=== PATIENT | male | born 1980 | race African-American/Black ===

== ENCOUNTER 2018-09-07 21:36 | Observation (INO) ==
[2018-09-07] MEDS ORDERED: ATIVAN IM ONE (22:51)
[2018-09-07 23:20] LABS: BASO# 0.02 X1000 (0.0-0.2); BASO% 0.2 % (0.0-0.8); EOS# 0.01 X1000 (0.0-0.7); EOS% 0.1 % (0.0-10.0); HEMATOCRIT 48.5 % (42.0-52.0); HEMOGLOBIN 16.2 g/dL (14.0-18.0); IMM GRAN# 0.02 X1000 (0.0-0.04); IMM GRAN% 0.2 % (0.0-0.5); LYMPH# 1.28 X1000 (1.2-3.4); LYMPH% 14.6 % (20.5-51.1); MCH 31.2 PG (27-31); MCHC 33.4 g/dL (33-37); MCV 93.3 FL (81-99); MONO# 0.65 X1000 (0.11-0.59); MONO% 7.4 % (1.7-9.3); MPV 11.2 FL (7.4-10.4); NEUT% 77.5 % (42.2-75.2); PLT 297 X1000 (130-400); RDW 13.6 % (11.5-14.5); WBC 8.78 X1000 (4.8-10.8)
[2018-09-07 23:40] LABS: AGAP 18; ALB/GLOB RATIO 1.4; ALBUMIN 5.4 g/dL (3.5-5.0); ALKALINE PHOSPHATASE 64 U/L (32-122); BUN 15 mg/dL (8-22); CALCIUM 9.3 mg/dL (8.8-10.2); CHLORIDE 95 mmol/L (98-107); CK TOTAL 1102 U/L (24-204); COSMO 278; CREATININE 1.2 mg/dL (0.7-1.2); ESTIMATED GFR > 60; GLUCOSE 151 mg/dL (70-104); GOT 46 U/L (10-34); GPT 32 U/L (10-44); POTASSIUM 3.8 mmol/L (3.5-5.1); SODIUM 137 mmol/L (136-145); TCO2 24 mmol/L (25-35); TOTAL BILIRUBIN 0.78 mg/dL (0.20-1.00); TOTAL PROTEIN 9.3 g/dL (6.3-8.3)
[2018-09-08] MEDS ORDERED: NS 1,000 ML IV ONE (00:05)
[2018-09-08] MEDS ORDERED: ATIVAN IM ONE ×2 (00:16→01:31)
--- NOTE | 2018-09-08 01:59 | PROVIDER DOCUMENTATION ---
This chart was entered by Juju Cornelius Scribe, acting as scribe for Walter Marlow MD. [id number] Abuse/Overdose - General Chief Complaint: Intoxicated Stated Complaint: psych Time Seen by Provider: 09/07/18 22:18 Source: EMS Allergies/Adverse Reactions: Allergies Allergy/AdvReac Type Severity Reaction Status Date / Time No Known Allergies Allergy Verified 07/14/18 19:59 Home Medications: Home Medication List Medication Instructions Recorded Confirmed Last Taken Type No Home Medications 01/23/15 07/14/18 Unknown History - History of Present Illness-Drug/Alcohol Nature of Presenting Problem: Pt is 37/M presenting to ED via EMS after "eating a gram of ICE" at home. Sts that it was the first time that he ever used it and that it made him hallucinate and scared him. His brother called EMS. Reports some N/V Review of Systems - Adult - REVIEW OF SYSTEMS - ADULT Constitutional: reports: no symptoms reported Eyes: reports: no symptoms reported Ears, Nose, Mouth & Throat: reports: no symptoms reported Cardiovascular: reports: no symptoms reported Respiratory: reports: no symptoms reported Gastrointestinal: reports: no symptoms reported Genitourinary: reports: no symptoms reported Musculoskeletal: reports: no symptoms reported Integumentary: reports: no symptoms reported Neurological: reports: no symptoms reported Psychiatric: reports: no symptoms reported Endocrine: reports: no symptoms reported Hematologic/Lymphatic: reports: no symptoms reported Allergic/Immunologic: reports: no symptoms reported All Other Systems: Reviewed and Negative Past History - Adult - PAST MEDICAL HISTORY-ADULT Review of Records: reports: Nursing Assessment Review, Medications Reviewed, Social history reviewed & non-contributory. Major Childhood Illnesses: reports: denies history Cardiovascular: reports: denies history Respiratory: reports: denies history Gastrointestinal: reports: denies history Obstetrical/Gynecological: reports: denies history Genitourinary: reports: denies history Musculoskeletal: reports: denies history Neurological: reports: denies history Endocrine/Immune: reports: denies history Other Conditions: reports: denies history - IMMUNIZATION STATUS Childhood Immunizations: See Nurse Assessment Flu Vaccine: See Nurse Assessment - FAMILY HISTORY Family History: reviewed, not pertinent Physical Exam-General - CONSTITUTIONAL General Appearance: moderate distress - EYES Eyes: pink conjunctivae - HEAD, EARS, NOSE, MOUTH & THROAT HENMT: moist mucous membranes - NECK Neck: full range of motion - RESPIRATORY Respiratory: chest non-tender, lungs clear, normal breath sounds. negative: crackles, rales, rhonchi - CARDIOVASCULAR Cardiovascular: normal peripheral pulses, regular rate, rhythm, no edema - GASTROINTESTINAL (ABDOMEN) Abdominal Exam: normal bowel sounds, non tender, soft. negative: distended, guarding, rigid, rebound, tenderness - MUSCULOSKELETAL Extremity: non-tender, normal gait - SKIN Integumentary: normal color, normal turgor - PSYCHIATRIC Psych/Mental Status: paranoid. negative: normal mood/affect, normal thought content, normal thought process Progress - PLAN OF CARE/RESULTS Progress/Plan/Lab Results: Vital Signs - 8 hr 09/07/18 22:18 09/08/18 00:06 09/08/18 01:45 Temperature 97.9 F 97.9 F Pulse Rate 162 H 136 H 121 H Respiratory Rate 18 20 20 Blood Pressure 160/113 143/113 130/99 O2 Sat by Pulse Oximetry 98 97 98 Laboratory Results - last 24 hr 09/07/18 09/07/18 09/07/18 22:45 22:45 22:45 WBC 8.78 RBC 5.20 Hgb 16.2 Hct 48.5 MCV 93.3 MCH 31.2 H MCHC 33.4 RDW Std Deviation 13.6 Plt Count 297 MPV 11.2 H Immature Gran % (Auto) 0.2 Neut % (Auto) 77.5 H Lymph % (Auto) 14.6 L [place] % (Auto) 7.4 Eos % (Auto) 0.1 Baso % (Auto) 0.2 Immature Gran # (Auto) 0.02 Neut # (Auto) 6.80 H Lymph # (Auto) 1.28 [place] # (Auto) 0.65 H Eos # (Auto) 0.01 Baso # (Auto) 0.02 Sodium 137 Potassium 3.8 Chloride 95 L Carbon Dioxide 24 L Anion Gap 18 BUN 15 Creatinine 1.2 Estimated GFR/1.73 m2 > 60 BUN/Creatinine Ratio 13 Glucose 151 H Calculated Osmolality 278 Calcium 9.3 Total Bilirubin 0.78 AST 46 H ALT 32 Alkaline Phosphatase 64 Creatine Kinase 1102 H Total Protein 9.3 H Albumin 5.4 H Globulin 3.9 Albumin/Globulin Ratio 1.4 Plasma/Serum Ethyl Alc Orders Category Date Time Status Saline Loc NOW Care 09/08/18 00:05 Active ALCOHOL BLOOD Stat Lab 09/07/18 22:45 Completed CBC WITH ELECTRONIC DIFF [HEME] Stat Lab 09/07/18 22:45 Completed CK TOTAL [CHEM] Stat Lab 09/07/18 22:45 Completed COMPREHENSIVE METABOLIC PANEL [CHEM] Stat Lab 09/07/18 22:45 Completed URINE DRUG SCREEN Stat Lab 09/08/18 00:34 Received 0.9% Sodium Chloride Inj [Ns] 1,000 ml Med 09/08/18 00:05 Discontinued IV 999 mls/hr Lorazepam [Ativan] Med 09/07/18 22:51 Discontinued 1 mg IM NOW ONE Lorazepam [Ativan] Med 09/08/18 00:16 Discontinued 2 mg IM NOW ONE Lorazepam [Ativan] Med 09/08/18 01:31 Discontinued 2 mg IM NOW ONE EKG [EKG] Stat Ther 09/07/18 22:52 Ordered A/P: Acute methamphetimine intoxication. Vitals show elevated BP and tacjycardia , pt active hallucinations and dleusions paranoid. will admit to ICU. Result Diagrams: 09/07/18 22:45 09/07/18 22:45 Departure - Departure Date of Disposition Decision: 09/08/18 Time of Disposition Decision: 01:56 DIAGNOSIS: Drug intoxication Disposition: ADMITTED INPATIENT 09 Certified Medical Emergency: Emergent Condition: Stable Additional Freetext Instructions: We have examined and treated you today on an emergency basis only. This was not a substitute for, or an effort to provide, complete medical care. In most cases, you must let your doctor check you again. Tell your doctor about any new or lasting problems. We cannot recognize and treat all injuries or illnesses in one Emergency Department visit. If you had special tests, such as X-rays or CT scans, will be reviewed by radiologist and will call you if there are any new suggestions Follow up with primary care provider in 1 to 2 days if no improvement. If you do not have a primary care provider, you need to choose one as soon as possible. Take medicines as prescribed. Monitor for any side effects or adverse events from medications. If any side effect, adverse event or rash develops, or if you suspect any other adverse reaction to the medication, then discontinue the medication immediately and contact clinic /PCP or go to the nearest ER. Narcotic meds / sedative meds instruction - patent advised not to drive, operate any machinery or go into water after taking meds as it may impair mental ability to react to the situation in an appropriate manner. Continue other current medicines. Follow up with PCP within 24-48 hours, or sooner if symptoms worsen or fail to improve. Patient / guardian verbalizes understanding of treatment plan, medication, and side effects and agrees with treatment plan. Patient leaves ER in stable condition and ambulatory state. Return to ER as needed. Discharge instructions reviewed verbally and given to patient in written form. Follow up with primary care provider. Referrals and Follow-Ups: None,PCP [Primary Care Provider] - - Critical Care Note This patient required my direct & personal management of CC.: No Attestation - Physician/ ADONIS Attestation Patient care was provided by Advanced Practice Provider:: No The physician spent face to face time with patient:: Yes Advanced Practice Provider documentation review:: Supervising physician onsite and consulted in the evaluation and care of this patient. The physician did have a face to face encounter with the patient. This chart was documented by the indicated scribe, (Juju Cornelius, Hali) and accurately reflects the services I performed and decisions made by me, Walter Marlow MD, as attested by the provider's signature.
[2018-09-08] MEDS ORDERED: ATIVAN IV ONE (02:38)
[2018-09-08 03:16] LABS: UR AMPHETAMINES QUAL PRESUMPTIVE POSITIVE (NONE DETECT); UR BARBITUATES QUAL NONE DETECTED (NONE DETECT); UR BENZODIAZEPIN QUAL NONE DETECTED (NONE DETECT); UR CANNABINOIDS QUAL NONE DETECTED (NONE DETECT); UR COCAINE QUAL PRESUMPTIVE POSITIVE (NONE DETECT); UR METHADONE QUAL NONE DETECTED (NONE DETECT); UR OPIATES QUAL NONE DETECTED (NONE DETECT); UR OXYCODONE QUAL NONE DETECTED (NONE DETECT); UR PCP QUAL NONE DETECTED (NONE DETECT)
--- NOTE | 2018-09-08 03:21 | HISTORY AND PHYSICAL ---
CHIEF COMPLAINT: Intoxication. HISTORY OF PRESENT ILLNESS: This is a 37-year-old, black male who was brought to the emergency room by family members. At some time during the previous evening, he had consumed some alcohol and some other drugs, namely methamphetamine. He began hallucinating, and having psychotic and paranoid features. Family members sent him to the ER. There, he was found to be highly agitated and confused. He was admitted, most likely for observation. This admission mirrors almost exactly an admission from last month in which he was intoxicated on methamphetamine. PAST MEDICAL HISTORY: None. PAST SURGICAL HISTORY: None. FAMILY HISTORY: None. SOCIAL HISTORY: None. There was no medical history, surgical history, family history, or social history that could be obtained from this man due to his intoxication. Any other historical elements were taken from previous records. ALLERGIES: No known drug allergies. REVIEW OF SYSTEMS: Unable to obtain. PHYSICAL EXAMINATION: GENERAL: He is a well-developed, black male who is in no acute distress. He is standing at the bedside, trying to pull off leads and remove his clothing. He is agitated and confused but not combative at the time of my examination. LUNGS: Clear. CARDIOVASCULAR: Regular, bordering on tachycardia. EXTREMITIES: Show no edema. He has no musculoskeletal deformities. PSYCHIATRIC: From a psychiatric standpoint, he is alert but he is not oriented. His speech is fluent but nonsensical and, to a certain degree, slurred. He does not appear to have any trauma about his head. LABORATORY DATA: White cells 8.7, hematocrit 48.5. BUN 15, creatinine 1.2, blood sugar 151. CK is 12 1102. Plasma alcohol was 0. Urine drug screen is still pending. ASSESSMENT AND PLAN: The patient will be admitted to the intensive care unit. I do not think, in his present condition, what he is able to be handled at the high patient to nurse ratio on the floor. There are no [facility] beds available so intensive care unit is really our only choice. He will be given intravenous fluids to try and flush out some of the CK and to keep his kidneys intact. We will be giving as needed Ativan and phenobarbital. If this goes like his previous examination, he will request discharge tomorrow when he comes to his senses. We will continue to observe and monitor his psychiatric status, and make adjustments in medications as necessary. cc: Mathew Vera MD
[2018-09-08] MEDS ORDERED: PHENOBARBITAL IV PRN (04:59)
[2018-09-08] MEDS ORDERED: ATIVAN IV PRN (04:59)
--- NOTE | 2018-09-08 09:09 | PROGRESS NOTE ---
DATE: 09/08/2018 SUBJECTIVE: The patient was admitted this morning. A 37-year-old brought into the emergency room by family members. He consumed some alcohol and some other drugs, namely methamphetamine. He was hallucinating and having psychotic and paranoid features. He has no other significant past medical history. Admitted and put in the unit. OBJECTIVE: General: This morning, he is awake, alert, and oriented. His words is that he will not be taking that any more. He is eating breakfast. Vital Signs: Temp 97.9 degrees, pulse 88, respirations 16, blood pressure 135/100. HEENT: Pupils are equal. Neck: No distended neck veins. Lungs: Clear in all lung yu anterior and posterior. Cardiovascular: Regular rhythm and rate without murmur or S3. Abdomen: Soft. Skin: Warm and dry. Extremities: No pedal edema. LABORATORY DATA: White count 8780, hematocrit 48, platelet count 297,000. Sodium 137, potassium 3.8, chloride 95, BUN 15, creatinine 1.2. Urine positive for amphetamines and positive for cocaine. His alcohol level was 0. ASSESSMENT AND PLAN: Cocaine and amphetamine metabolic encephalopathy. Looks better. Hopefully, he can go home later today. cc: Maxim Smith MD
--- NOTE | 2018-09-08 13:52 | DISCHARGE SUMMARY ---
ADMISSION DATE: 09/08/2018 DISCHARGE DATE: 09/08/2018 Patient admitted in the morning discharge later on that evening discharged it about 1:30 p.m. 37-year-old black male brought to the emergency room by family members sometime previous evening. He had consumed some alcohol and some other drugs naming methamphetamines and he was having hallucinating and psychotic and paranoid features and was brought into the emergency room. Admitted to the unit appeared hemodynamically stable. No other significant medical problems. His labs were pretty unremarkable. CBC and electrolytes, liver functions pretty unremarkable. No sign of significant acidosis. He improved, he was eating. Neurologic exam completely intact. Blood pressures look good one blood pressure 139/97, pulse 110, respirations 20. Lungs: Are clear in all lung yu. Cardiovascular: Regular rhythm and rate without murmur or S3. Abdomen: Soft. Skin: Warm and dry. So I am going to let him go home. He is not on any medications. He is to find a primary care physician and follow up and course counseled not to drink alcohol and not to use any illicit drugs such as amphetamines. He is also positive for cocaine. cc: Maxim Smith MD
[2018-09-08 14:06] VITALS: BP 137/110
--- NOTE | 2018-09-09 09:29 | EKG Report ---
Test Performed on : 09/07/2018 10:45:18 PM Test Reason : drug intox Blood Pressure : / mmHG Vent. Rate : 145 BPM Atrial Rate : 145 BPM P-R Int : 114 ms QRS Dur : 074 ms QT Int : 290 ms P-R-T Axes : 036 056 036 degrees QTc Int : 450 ms Sinus tachycardia. Otherwise normal ECG No previous ECGs available Unconfirmed Result
== END 2018-09-08 14:05 | disposition home or self-care (01) ==
LOC: SUPCPDRO → ED 21:36 → SUATTDRO 09-08 03:38 → INTOOBSV 09-08 03:38 → ICU 09-08 03:38
PROVIDERS: ATTEND Emergency Medicine
CPT/HCPCS: 80053; 80101; 80301; 80307; 80320; 80324; 80345; 80346; 80353; 80358; 80361; 80365; 82055; 82550; 83992; 85025; 93005; 96360; 96372; 99285; G0431; G0434; G0479; G0480; G6040; J2060; J7030

== ENCOUNTER 2018-11-17 22:09 | Observation (INO) ==
[2018-11-17] MEDS ORDERED: ATIVAN ONE (22:20)
[2018-11-17] MEDS ORDERED: ATIVAN IV ONE (22:21)
--- NOTE | 2018-11-17 22:32 | PROVIDER DOCUMENTATION ---
This chart was entered by Roseline Dhillon Scribe, acting as scribe for Cem Kumari MD. [id number] Abuse/Overdose - General Chief Complaint: Overdose Stated Complaint: Psych Time Seen by Provider: 11/17/18 22:23 Source: patient Allergies/Adverse Reactions: Allergies Allergy/AdvReac Type Severity Reaction Status Date / Time No Known Allergies Allergy Verified 01/10/18 15:08 Home Medications: Home Medication List Medication Instructions Recorded Confirmed Last Taken Type No Home Medications 02/18/16 01/10/18 Unknown History - History of Present Illness-Drug/Alcohol Nature of Presenting Problem: 38 yom c/o pt arrived via ems. pt states he snorted ICE around 1400 and drank 6 pack of beer today. pt states he has min sob but no cp, fever or chills. no SI or hi. Review of Systems - Adult - REVIEW OF SYSTEMS - ADULT Constitutional: reports: no symptoms reported. denies: chills, fever, fatique Eyes: reports: no symptoms reported Ears, Nose, Mouth & Throat: reports: no symptoms reported Cardiovascular: reports: see HPI, irregular heart rate (tachy). denies: chest pain, orthopnea, palpitations Respiratory: reports: see HPI, shortness of breath (MINIMAL). denies: cough, excessive sputum production, hemoptysis, pleurisy Gastrointestinal: reports: no symptoms reported. denies: abdominal pain, diarrhea, frequent heartburn, nausea, vomiting Genitourinary: reports: no symptoms reported Musculoskeletal: reports: no symptoms reported Integumentary: reports: no symptoms reported Neurological: reports: no symptoms reported Psychiatric: reports: no symptoms reported Endocrine: reports: no symptoms reported Hematologic/Lymphatic: reports: no symptoms reported Allergic/Immunologic: reports: no symptoms reported All Other Systems: Reviewed and Negative Past History - Adult - PAST MEDICAL HISTORY-ADULT Review of Records: reports: Old Records Reviewed, Nursing Assessment Review, Medications Reviewed, Social history reviewed & non-contributory. Major Childhood Illnesses: reports: denies history Cardiovascular: reports: denies history Respiratory: reports: denies history Gastrointestinal: reports: denies history Obstetrical/Gynecological: reports: denies history Genitourinary: reports: denies history Musculoskeletal: reports: denies history Neurological: reports: denies history Endocrine/Immune: reports: denies history Other Conditions: reports: denies history - PRIOR SURGERIES/PROCEDURES Surgical/Procedure History: reports: none - IMMUNIZATION STATUS Childhood Immunizations: See Nurse Assessment Flu Vaccine: See Nurse Assessment - FAMILY HISTORY Family History: reviewed, not pertinent - SOCIAL HISTORY Smoking: cigarettes, greater than 1 pack/day Provider spent 3-5 mins advising pt. on dangers of tobacco.: Discussed manners to quit use, and f/u contacts for add'l counseling. Substance Use: alcohol, amphetamines Physical Exam-General - PHYSICAL EXAM-ADULT Initial Vital Signs Reviewed: Yes - CONSTITUTIONAL General Appearance: appears well, alert, no apparent distress. negative: lethargic, slow to respond, obtunded - EYES Eyes: PERRL/EOMI, pink conjunctivae - HEAD, EARS, NOSE, MOUTH & THROAT HENMT: normocephalic/atraumatic, moist mucous membranes, normal ENT inspection - NECK Neck: non-tender, full range of motion, supple, normal inspection - RESPIRATORY Respiratory: chest non-tender, lungs clear, normal breath sounds, no pleuratic chest pain, no respiratory distress, no accessory muscle use. negative: respiratory distress, decreased breath sounds, accessory muscle use - CARDIOVASCULAR Cardiovascular: normal peripheral pulses, no edema, no gallop, no JVD, no murmur , tachycardia. negative: regular rate, rhythm, JVD, bradycardia - GASTROINTESTINAL (ABDOMEN) Abdominal Exam: normal bowel sounds, non tender, soft, no organomegaly, no pulsatile mass - LYMPHATIC Lymphatic: no adenopathy - MUSCULOSKELETAL Back Exam: normal inspection, no CVA tenderness, no vertebral tenderness Extremity: normal range of motion, non-tender, normal inspection Peripheral Pulses: radial (R): 2+, radial (L): 2+ - SKIN Integumentary: normal color, normal turgor, warm/dry - NEUROLOGIC Neurologic: grossly normal, no motor/sensory deficits - PSYCHIATRIC Psych/Mental Status: normal mood/affect, normal thought content, normal thought process, oriented x 3. negative: anxious, disheveled, depressed affect Progress - PLAN OF CARE/RESULTS Progress/Plan/Lab Results: Vital Signs - 8 hr 11/17/18 22:12 Temperature 98.7 F Pulse Rate 160 H Respiratory Rate 18 Blood Pressure 154/094 O2 Sat by Pulse Oximetry 96 Laboratory Results - last 24 hr 11/17/18 11/17/18 11/17/18 22:15 22:15 23:11 Sodium 137 Potassium 4.4 Chloride 95 L Carbon Dioxide 12 L Anion Gap 30 BUN 10 Creatinine 1.3 H Estimated GFR/1.73 m2 > 60 BUN/Creatinine Ratio 8 Glucose 105 H Calculated Osmolality 273 Calcium 9.4 Total Bilirubin 0.40 AST 32 ALT 22 Alkaline Phosphatase 47 Total Protein 7.5 Albumin 4.5 Globulin 3.0 Albumin/Globulin Ratio 2.0 Salicylates < 3.00 L Urine Opiates Screen NONE DETECTED Ur Oxycodone Screen NONE DETECTED Urine Methadone Screen NONE DETECTED U Propoxyphene Qual NONE DETECTED Acetaminophen < 1.2 L Ur Barbituates Screen NONE DETECTED Ur Tricyclics Screen NONE DETECTED Ur Phencyclidine Scrn NONE DETECTED Ur Amphetamines Screen PRESUMPTIVE POSITIVE A U Methamphetamines Scrn PRESUMPTIVE POSITIVE A U Benzodiazepines Scrn NONE DETECTED Urine Cocaine Screen PRESUMPTIVE POSITIVE A U Cannabinoids Screen NONE DETECTED Plasma/Serum Ethyl Alc 16 H Orders Category Date Time Status Cardiac Monitoring DIRECTED Care 11/17/18 22:28 Active Misc. NRSG Communication Order DIRECTED Care 11/17/18 22:33 Active Saline Loc NOW Care 11/17/18 22:28 Active ACETAMINOPHEN [TDM] Stat Lab 11/17/18 22:15 Completed ALCOHOL BLOOD Stat Lab 11/17/18 22:15 Completed CMP [COMPREHENSIVE METABOLIC PANEL] [CHEM] Stat Lab 11/17/18 22:15 Completed SALICYLATES [TDM] Stat Lab 11/17/18 22:[address] S[address]EN [address] Stat Lab 11/17/18 23:11 Completed Lorazepam [Ativan] Med 11/17/18 22:20 Discontinued 2 mg .ROUTE .STK-MED ONE Lorazepam [Ativan] Med 11/17/18 22:21 Discontinued 2 mg IV NOW ONE EKG [EKG] Stat Ther 11/17/18 22:31 Ordered Result Diagrams: 11/17/18 22:15 - EKG 1 Time of EKG reading by physician:: 22:25 EKG Read and Signed by:: Cem Kumari Rate: 143 [place]: normal Comments: no STEMI - CONSULTS/PCP/HOSPITALIST Notification #1 *Consult/PCP/Hospitalist*: Dr. Busch, hospitalist Time Discussed: 00:45 Consult Disposition: Admit Departure - Departure Date of Disposition Decision: 11/18/18 Time of Disposition Decision: 01:05 DIAGNOSIS: Substance abuse, Tachycardia Disposition: ADMITTED INPATIENT 09 Certified Medical Emergency: Emergent Condition: Stable Referrals and Follow-Ups: None,PCP [Primary Care Provider] - - Critical Care Note This patient required my direct & personal management of CC.: Yes Attestation - Physician/ ADONIS Attestation Patient care was provided by Advanced Practice Provider:: No The physician spent face to face time with patient:: Yes Advanced Practice Provider documentation review:: Supervising physician onsite and consulted in the evaluation and care of this patient. The physician did have a face to face encounter with the patient. This chart was documented by the indicated scribe, (Roseline Dhillon, Hali) and accurately reflects the services I performed and decisions made by me, Cem Davila MD, as attested by the provider's signature.
[2018-11-17 23:00] LABS: ESTIMATED GFR > 60
[2018-11-17 23:17] LABS: ACETAMINOPHEN < 1.2 ug/mL (10-30); AGAP 30; ALBUMIN 4.5 g/dL (3.5-5.0); ALKALINE PHOSPHATASE 47 U/L (32-122); BUN 10 mg/dL (8-22); CALCIUM 9.4 mg/dL (8.8-10.2); CHLORIDE 95 mmol/L (98-107); COSMO 273; CREATININE 1.3 mg/dL (0.7-1.2); GLUCOSE 105 mg/dL (70-104); GOT 32 U/L (10-34); GPT 22 U/L (10-44); POTASSIUM 4.4 mmol/L (3.5-5.1); SALICYLATES < 3.00 mg/dL (3-10); SODIUM 137 mmol/L (136-145); TCO2 12 mmol/L (25-35); TOTAL PROTEIN 7.5 g/dL (6.3-8.3)
[2018-11-17 23:44] LABS: UR AMPHETAMINES QUAL PRESUMPTIVE POSITIVE (NONE DETECT); UR BARBITUATES QUAL NONE DETECTED (NONE DETECT); UR BENZODIAZEPIN QUAL NONE DETECTED (NONE DETECT); UR CANNABINOIDS QUAL NONE DETECTED (NONE DETECT); UR COCAINE QUAL PRESUMPTIVE POSITIVE (NONE DETECT); UR METHADONE QUAL NONE DETECTED (NONE DETECT); UR METHAMPHETAMINE QUAL PRESUMPTIVE POSITIVE (NONE DETECT); UR OPIATES QUAL NONE DETECTED (NONE DETECT); UR OXYCODONE QUAL NONE DETECTED (NONE DETECT); UR PCP QUAL NONE DETECTED (NONE DETECT); UR PROPOXYPHENE QUAL NONE DETECTED (NONE DETECT); UR TCA QUAL NONE DETECTED (NONE DETECT)
[2018-11-18] MEDS ORDERED: ATIVAN IV PRN (02:31)
[2018-11-18] MEDS ORDERED: NICODERM PATCH ONE (03:48)
[2018-11-18] MEDS ORDERED: NICODERM PATCH TD ONE (03:50)
--- NOTE | 2018-11-18 04:20 | EKG Report ---
Test Performed on : 11/17/2018 10:24:12 PM Test Reason : pain Blood Pressure : / mmHG Vent. Rate : 143 BPM Atrial Rate : 144 BPM P-R Int : 126 ms QRS Dur : 076 ms QT Int : 290 ms P-R-T Axes : 068 079 052 degrees QTc Int : 447 ms Sinus tachycardia. Possible Left atrial enlargement Borderline ECG When compared with ECG of 17-NOV-2018 03:37, (Unconfirmed) No significant change was found Unconfirmed Result
[2018-11-18 12:08] VITALS: BP 138/86
[2018-11-18 12:34] LABS: BASO# 0.04 X1000 (0.0-0.2); BASO% 0.6 % (0.0-0.8); EOS# 0.17 X1000 (0.0-0.7); EOS% 2.7 % (0.0-10.0); HEMATOCRIT 42.9 % (42.0-52.0); IMM GRAN# 0.02 X1000 (0.0-0.04); IMM GRAN% 0.3 % (0.0-0.5); LYMPH# 1.88 X1000 (1.2-3.4); MCH 32.5 PG (27-31); MCV 92.9 FL (81-99); MONO# 0.54 X1000 (0.11-0.59); MONO% 8.6 % (1.7-9.3); MPV 9.9 FL (7.4-10.4); NEUT# 3.62 X1000 (1.4-6.5); NEUT% 57.8 % (42.2-75.2); PLT 307 X1000 (130-400); RBC 4.62 XMIL (4.7-6.1); RDW 13.2 % (11.5-14.5); WBC 6.27 X1000 (4.8-10.8)
[2018-11-18] MEDS ORDERED: ASPIRIN PO SCH (12:45)
[2018-11-18] MEDS ORDERED: NS 1,000 ML IV SCH (12:45)
[2018-11-18] MEDS ORDERED: NICODERM PATCH TD SCH (12:45)
[2018-11-18 12:48] LABS: AGAP 14; ALKALINE PHOSPHATASE 43 U/L (32-122); BUN 11 mg/dL (8-22); CALCIUM 8.4 mg/dL (8.8-10.2); CHLORIDE 103 mmol/L (98-107); CK TOTAL 515 U/L (24-204); COSMO 282; CREATININE 1.1 mg/dL (0.7-1.2); ESTIMATED GFR > 60; GLUCOSE 115 mg/dL (70-104); GOT 32 U/L (10-34); GPT 19 U/L (10-44); MAGNESIUM 2.1 mg/dL (1.5-2.7); POTASSIUM 3.9 mmol/L (3.5-5.1); SODIUM 141 mmol/L (136-145); TCO2 25 mmol/L (25-35); TOTAL PROTEIN 6.9 g/dL (6.3-8.3)
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
--- NOTE | 2018-11-19 00:12 | HISTORY AND PHYSICAL ---
ADDENDUM: The patient seen and examined by myself. Full note dictated and discussed with nurse practitioner. The patient presented to the hospital after being acutely confused and combative. He admits using ice as well as heroin. SOCIAL HISTORY: The patient smokes, he drinks and uses illicit substances. PLAN: We will admit the patient in the hospital following him for withdrawal. Further orders as needed. cc: Eliezer Sahni MD
--- NOTE | 2018-11-19 07:05 | DISCHARGE SUMMARY ---
ADMISSION DATE: 11/18/2018 DISCHARGE DATE: 11/18/2018 ADDENDUM: Patient seen and examined by myself. Full note dictated and discussed with nurse practitioner. Patient was admitted earlier today and discharged. Currently is awake, alert. Whatever he took seems to have worn off. DISPOSITION: Patient will be discharged home. Discussed with patient that he needs to get help with his substance abuse, although patient declines that he has any issues. TIME SPENT: Greater than 30 minutes was spent in total care. cc: Eliezer Sahni MD
== END 2018-11-18 13:48 | disposition home or self-care (01) ==
LOC: P.MEDSURG 22:09 → P.ED 22:09 → MERGE 11-18 03:40 → SUATTDRO 11-18 03:40 → P.MEDSURG 11-18 13:01
PROVIDERS: ATTEND Family Medicine
CPT/HCPCS: 80053; 80104; 80196; 80301; 80305; 80307; 80320; 80324; 80329; 82003; 82055; 82550; 83605; 83735; 84484; 85025; 93005; 94761; 96374; 99285; A9270; G0431; G0434; G0477; G0480; G6038; G6039; G6040; J2060

== ENCOUNTER 2019-05-19 18:24 | Inpatient (IN) ==
[2019-05-19] MEDS ORDERED: ATIVAN IV ONE (18:50)
[2019-05-19] MEDS ORDERED: GEODON IM ONE (18:50)
[2019-05-19] MEDS ORDERED: BENADRYL IV ONE (18:50)
[2019-05-19] MEDS ORDERED: STERILE WATER INJ. INJ ONE (18:52)
--- NOTE | 2019-05-19 18:55 | PROVIDER DOCUMENTATION ---
This chart was entered by Angelo Coronel Scribe, acting as scribe for Marlo Gilbert MD. [id number] Abuse/Overdose - General Source: patient, EMS - History of Present Illness-Drug/Alcohol This episode of drinking or use began:: just prior to arrival Severity: reports: mild Psychiatric Complaints: reports: denies symptoms Associated Symptoms: reports: denies symptoms Any injuries associated with this episode of intoxication?: No Similar Symptoms Previously?: Yes Recently seen or treated by another doctor?: No - Substance Abuse Substance Use: reports: amphetamines <Marlo Gilbert - Last Filed: 05/19/19 21:07> <Jeniffer Keen - Last Filed: 05/20/19 03:48> - General Chief Complaint: Intoxicated Stated Complaint: METH, COMBATIVE Time Seen by Provider: 05/19/19 18:38 Allergies/Adverse Reactions: Allergies Allergy/AdvReac Type Severity Reaction Status Date / Time No Known Allergies Allergy Verified 05/19/19 19:26 Home Medications: Home Medication List Medication Instructions Recorded Confirmed Last Taken Type No Home Medications 02/18/16 05/19/19 Unknown History - History of Present Illness-Drug/Alcohol Nature of Presenting Problem: Pt is a 38 yom who presents to the ED via EMS for drug abuse. EMS reports the pt took 5g of methamphetamines this evening. EMS reports they were called by the pt's cousin. EMS reports they gave the pt 4mg versed intranasally prior to arrival to the ED. EMS reports the pt was combative prior to arrival to the ED. Pt is anxious, tachycardic, and has body tremors on examination. (Marlo Gilbert) Review of Systems - Adult - REVIEW OF SYSTEMS - ADULT Constitutional: reports: see HPI Eyes: reports: no symptoms reported Ears, Nose, Mouth & Throat: reports: no symptoms reported Cardiovascular: reports: see HPI Respiratory: reports: no symptoms reported Gastrointestinal: reports: no symptoms reported Genitourinary: reports: no symptoms reported Musculoskeletal: reports: no symptoms reported Integumentary: reports: no symptoms reported Neurological: reports: see HPI Psychiatric: reports: see HPI, alcohol/drug dependence Endocrine: reports: no symptoms reported Hematologic/Lymphatic: reports: no symptoms reported Allergic/Immunologic: reports: no symptoms reported All Other Systems: Reviewed and Negative <Marlo Gilbert - Last Filed: 05/19/19 21:07> Past History - Adult - PAST MEDICAL HISTORY-ADULT Review of Records: reports: Old Records Reviewed, Nursing Assessment Review, Medications Reviewed, Social history reviewed & non-contributory. Major Childhood Illnesses: reports: denies history Cardiovascular: reports: HTN Respiratory: reports: denies history Gastrointestinal: reports: denies history Obstetrical/Gynecological: reports: denies history Genitourinary: reports: denies history Musculoskeletal: reports: denies history Neurological: reports: denies history Endocrine/Immune: reports: denies history Other Conditions: reports: denies history - PRIOR SURGERIES/PROCEDURES Surgical/Procedure History: reports: none - IMMUNIZATION STATUS Childhood Immunizations: See Nurse Assessment Flu Vaccine: See Nurse Assessment - FAMILY HISTORY Family History: reviewed, not pertinent - SOCIAL HISTORY Smoking: cigarettes, less than 1 pack/day Substance Use: alcohol, amphetamines Alcohol Use Frequency: every day <Marlo Gilbert - Last Filed: 05/19/19 21:07> Physical Exam-General - PHYSICAL EXAM-ADULT Exam Limited by: Pt's condition Initial Vital Signs Reviewed: Yes - CONSTITUTIONAL General Appearance: alert, mild distress, combative - HEAD, EARS, NOSE, MOUTH & THROAT HENMT: normocephalic/atraumatic, moist mucous membranes - NECK Neck: non-tender, full range of motion - RESPIRATORY Respiratory: chest non-tender, lungs clear, normal breath sounds - CARDIOVASCULAR Cardiovascular: no edema, tachycardia - GASTROINTESTINAL (ABDOMEN) Abdominal Exam: non tender, soft - MUSCULOSKELETAL Extremity: normal range of motion, non-tender - SKIN Integumentary: normal color, warm/dry - NEUROLOGIC Neurologic: sensory deficit - PSYCHIATRIC Psych/Mental Status: anxious, paranoid <Marlo Gilbert - Last Filed: 05/19/19 21:07> Progress - PLAN OF CARE/RESULTS Result Diagrams: 05/19/19 18:42 05/19/19 18:42 - EKG 1 Time of EKG reading by physician:: 18:42 EKG Read and Signed by:: Marlo Gilbert EKG Interpretation (*Must complete 3 of following elements*): Abnormal (Sinus tachycardia, otherwise normal ECG) Rate: 133 Rhythm: Sinus tachycardia [place]: normal QRS: normal NV Interval: normal ST Wave: normal - CONSULTS/PCP/HOSPITALIST Notification #1 *Consult/PCP/Hospitalist*: Dr. Boyd - Hospitalist Time Discussed: 21:06 Reason/Comments: Made aware of pt and accepts admission. Consult Disposition: Admit - CHANGE OF SHIFT REPORT (ED Provider) 1 Report Given and Care Transferred to:: DR WHITT Time of Transfer: 19:00 <Marlo Gilbert - Last Filed: 05/19/19 21:07> - PLAN OF CARE/RESULTS Result Diagrams: 05/19/19 18:42 05/19/19 18:42 <Jeniffer Keen - Last Filed: 05/20/19 03:48> - PLAN OF CARE/RESULTS Progress/Plan/Lab Results: Vital Signs - 8 hr 05/19/19 20:00 05/19/19 20:01 05/19/19 20:15 Pulse Rate 118 H 116 H 116 H Respiratory Rate 25 H 19 21 Blood Pressure 155/107 O2 Sat by Pulse Oximetry 100 99 99 05/19/19 20:30 05/19/19 20:45 05/19/19 21:00 Pulse Rate 114 H 111 H 106 H Respiratory Rate 22 30 H 22 Blood Pressure O2 Sat by Pulse Oximetry 99 100 99 05/19/19 21:01 05/19/19 21:15 05/19/19 21:30 Pulse Rate 105 H 112 H 107 H Respiratory Rate 18 20 26 H Blood Pressure 170/113 O2 Sat by Pulse Oximetry 100 100 100 05/19/19 21:45 05/19/19 22:00 05/19/19 22:01 Pulse Rate 103 H 97 H 103 H Respiratory Rate 20 14 24 Blood Pressure 161/108 O2 Sat by Pulse Oximetry 100 80 L 93 L 05/19/19 22:08 05/19/19 22:44 05/19/19 22:45 Pulse Rate 126 H Respiratory Rate 28 H Blood Pressure O2 Sat by Pulse Oximetry 94 L 94 L 05/19/19 22:46 05/19/19 22:47 05/19/19 22:48 Pulse Rate 98 H 100 H Respiratory Rate 20 19 Blood Pressure O2 Sat by Pulse Oximetry 95 95 94 L 05/19/19 22:49 Pulse Rate 100 H Respiratory Rate 19 Blood Pressure O2 Sat by Pulse Oximetry 94 L Laboratory Results - last 24 hr 05/19/19 05/19/19 05/19/19 18:42 18:42 18:42 WBC 7.11 RBC 4.70 Hgb 15.0 Hct 42.9 MCV 91.3 MCH 31.9 H MCHC 35.0 RDW Std Deviation 12.2 Plt Count 156 MPV 10.8 H Immature Gran % (Auto) 0.0 Neut % (Auto) 55.9 Lymph % (Auto) 31.5 [place] % (Auto) 10.4 H Eos % (Auto) 1.8 Baso % (Auto) 0.4 Immature Gran # (Auto) 0.00 Neut # (Auto) 3.97 Lymph # (Auto) 2.24 [place] # (Auto) 0.74 H Eos # (Auto) 0.13 Baso # (Auto) 0.03 Sodium 132 L Potassium 3.3 L Chloride 92 L Carbon Dioxide 20 L Anion Gap 20 BUN 11 Creatinine 1.0 Estimated GFR/1.73 m2 > 60 BUN/Creatinine Ratio 11 Glucose 87 Calculated Osmolality 263 Calcium 8.2 L Total Bilirubin 1.02 H AST 31 ALT 18 Alkaline Phosphatase 49 Creatine Kinase Troponin T Total Protein 7.0 Albumin 4.3 Globulin 2.7 Albumin/Globulin Ratio 1.6 Plasma Lactate Urine Source Urine Color Urine Turbidity Urine pH Ur Specific [place] Urine Protein Ur Glucose (Stick) Ur Ketones (Stick) Urine Blood Urine Nitrite Urine Bilirubin Urobilinogen Dipstick Urine Leukocytes Urine WBC (Auto) Urine RBC (Auto) U Epithel Cells (Auto) Urine Bacteria (Auto) Urine Opiates Screen Ur Oxycodone Screen Ur Methadone, Qual Ur Barbiturates Screen Ur Phencyclidine Scrn Ur Amphetamines Screen U Benzodiazepines Scrn Urine Cocaine Screen U Cannabinoids Screen Plasma/Serum Ethyl Alc 05/19/19 05/19/19 05/19/19 18:42 18:42 20:25 WBC RBC Hgb Hct MCV MCH MCHC RDW Std Deviation Plt Count MPV Immature Gran % (Auto) Neut % (Auto) Lymph % (Auto) [place] % (Auto) Eos % (Auto) Baso % (Auto) Immature Gran # (Auto) Neut # (Auto) Lymph # (Auto) [place] # (Auto) Eos # (Auto) Baso # (Auto) Sodium Potassium Chloride Carbon Dioxide Anion Gap BUN Creatinine Estimated GFR/1.73 m2 BUN/Creatinine Ratio Glucose Calculated Osmolality Calcium Total Bilirubin AST ALT Alkaline Phosphatase Creatine Kinase 525 H Troponin T < 0.010 Total Protein Albumin Globulin Albumin/Globulin Ratio Plasma Lactate Urine Source CLEAN CATCH Urine Color YELLOW Urine Turbidity CLEAR Urine pH 5.5 Ur Specific [place] 1.030 Urine Protein TRACE A Ur Glucose (Stick) NEGATIVE Ur Ketones (Stick) 10 A Urine Blood NEGATIVE Urine Nitrite NEGATIVE Urine Bilirubin NEGATIVE Urobilinogen Dipstick NORMAL Urine Leukocytes NEGATIVE Urine WBC (Auto) <10 Urine RBC (Auto) <10 U Epithel Cells (Auto) <10 Urine Bacteria (Auto) NEGATIVE Urine Opiates Screen Ur Oxycodone Screen Ur Methadone, Qual Ur Barbiturates Screen Ur Phencyclidine Scrn Ur Amphetamines Screen U Benzodiazepines Scrn Urine Cocaine Screen U Cannabinoids Screen Plasma/Serum Ethyl Alc 05/19/19 05/19/19 20:25 20:40 WBC RBC Hgb Hct MCV MCH MCHC RDW Std Deviation Plt Count MPV Immature Gran % (Auto) Neut % (Auto) Lymph % (Auto) [place] % (Auto) Eos % (Auto) Baso % (Auto) Immature Gran # (Auto) Neut # (Auto) Lymph # (Auto) [place] # (Auto) Eos # (Auto) Baso # (Auto) Sodium Potassium Chloride Carbon Dioxide Anion Gap BUN Creatinine Estimated GFR/1.73 m2 BUN/Creatinine Ratio Glucose Calculated Osmolality Calcium Total Bilirubin AST ALT Alkaline Phosphatase Creatine Kinase Troponin T Total Protein Albumin Globulin Albumin/Globulin Ratio Plasma Lactate 1.1 Urine Source Urine Color Urine Turbidity Urine pH Ur Specific [place] Urine Protein Ur Glucose (Stick) Ur Ketones (Stick) Urine Blood Urine Nitrite Urine Bilirubin Urobilinogen Dipstick Urine Leukocytes Urine WBC (Auto) Urine RBC (Auto) U Epithel Cells (Auto) Urine Bacteria (Auto) Urine Opiates Screen NONE DETECTED Ur Oxycodone Screen NONE DETECTED Ur Methadone, Qual NONE DETECTED Ur Barbiturates Screen NONE DETECTED Ur Phencyclidine Scrn NONE DETECTED Ur Amphetamines Screen PRESUMPTIVE POSITIVE A U Benzodiazepines Scrn PRESUMPTIVE POSITIVE A Urine Cocaine Screen NONE DETECTED U Cannabinoids Screen NONE DETECTED Plasma/Serum Ethyl Alc Orders Category Date Time Status Admit - [facility] Routine AdmDCTranf 05/19/19 23:03 Active Activity - Up with Assistance ORDERED Care 05/19/19 23:03 Active Apply Mechanical Device [QM] ORDERED Care 05/19/19 23:03 Active Cardiac Monitoring DIRECTED Care 05/19/19 18:51 Completed Intake and Output-Strict ORDERED Care 05/19/19 23:03 Active Saline Loc NOW Care 05/19/19 18:51 Active Vital Signs Order Q 4-HR ASSESS Care 05/19/19 23:03 Active Z-Document. for Tele Applied ORDERED Care 05/19/19 23:03 Active NPO Diet 05/19/19 23:03 Active CHEST-PORTABLE [RAD] Stat Exams 05/19/19 18:52 Completed ALCOHOL BLOOD Stat Lab 05/19/19 18:42 Completed BASIC METABOLIC PANEL [CHEM] Routine Lab 05/20/19 06:00 Ordered CBC WITH DIFF [HEME] Routine Lab 05/20/19 06:00 Ordered CBC WITH ELECTRONIC DIFF [HEME] Stat Lab 05/19/19 18:42 Completed CK TOTAL [CHEM] Stat Lab 05/19/19 18:42 Completed COMPREHENSIVE METABOLIC PANEL [CHEM] Stat Lab 05/19/19 18:42 Completed LACTATE, PLASMA [CHEM] Stat Lab 05/19/19 20:40 Completed TROPONIN T Stat Lab 05/19/19 18:42 Completed URINALYSIS W/POSS RFLX CULT [URINALYSIS] Stat Lab 05/19/19 20:25 Completed URINE DRUG SCREEN Stat Lab 05/19/19 20:25 Completed 0.9% Sodium Chloride Inj [Ns] 1,000 ml Med 05/19/19 23:03 Active IV 125 mls/hr Diphenhydramine [Benadryl] Med 05/19/19 18:50 Discontinued 50 mg IV NOW ONE Lorazepam [Ativan] Med 05/19/19 23:03 Active 1 mg IV Q4H PRN PRN Lorazepam [Ativan] Med 05/19/19 18:50 Discontinued 2 mg IV NOW ONE Water, Sterile Inj [Sterile Water Inj] Med 05/19/19 18:52 Discontinued 1.2 ml INJ NOW ONE Ziprasidone [Geodon] Med 05/19/19 18:50 Discontinued 20 mg IM NOW ONE Telemetry [OM.EQ] Routine Oth 05/19/19 23:03 Active EKG [EKG] Stat Ther 05/19/19 18:51 Draft Transfer/Admit Order [TRANSFER] Routine Transfer 05/19/19 22:10 Completed Patient signed out to me pending labs. Patient with recent meth OD. He appears altered. Spoke to Dr boyd business information analyst for hospitalist who accepted patient for admission. (Jeniffer Keen) Departure - Departure Date of Disposition Decision: 05/19/19 Certified Medical Emergency: Emergent - Critical Care Note This patient required my direct & personal management of CC.: No <Marlo Gilbert - Last Filed: 05/19/19 21:07> - Departure Time of Disposition Decision: 21:07 - Critical Care Note This patient required my direct & personal management of CC.: Yes Total Time (mins): 35 Critical Care Statement: This patient required my direct personal management to treat or rule out processes, the absence of which, could potentiallly result in sudden, clinically significant life or limb threatening deterioration. <Jeniffer Keen - Last Filed: 05/20/19 03:48> - Departure DIAGNOSIS: Substance abuse, Drug intoxication, Tachycardia, Overdose Disposition: ADMITTED INPATIENT 09 Condition: Stable Attestation - Physician/ ADONIS Attestation Patient care was provided by Advanced Practice Provider:: No The physician spent face to face time with patient:: Yes Advanced Practice Provider documentation review:: Supervising physician onsite and consulted in the evaluation and care of this patient. The physician did have a face to face encounter with the patient. <Marlo Gilbert - Last Filed: 05/19/19 21:07> This chart was documented by the indicated scribe, (Angelo Coronel Scribe) and accurately reflects the services I performed and decisions made by me, Marlo Gilbert MD, as attested by the provider's signature.
[2019-05-19 19:28] LABS: BASO# 0.03 X1000 (0.0-0.2); BASO% 0.4 % (0.0-0.8); EOS# 0.13 X1000 (0.0-0.7); EOS% 1.8 % (0.0-10.0); HEMATOCRIT 42.9 % (42.0-52.0); LYMPH# 2.24 X1000 (1.2-3.4); LYMPH% 31.5 % (20.5-51.1); MCH 31.9 PG (27-31); MCV 91.3 FL (81-99); MONO# 0.74 X1000 (0.11-0.59); MONO% 10.4 % (1.7-9.3); MPV 10.8 FL (7.4-10.4); NEUT# 3.97 X1000 (1.4-6.5); NEUT% 55.9 % (42.2-75.2); PLT 156 X1000 (130-400); RDW 12.2 % (11.5-14.5); WBC 7.11 X1000 (4.8-10.8)
[2019-05-19 19:47] LABS: AGAP 20; ALB/GLOB RATIO 1.6; ALBUMIN 4.3 g/dL (3.5-5.0); ALKALINE PHOSPHATASE 49 U/L (32-122); BUN 11 mg/dL (8-22); CALCIUM 8.2 mg/dL (8.8-10.2); CHLORIDE 92 mmol/L (98-107); COSMO 263; ESTIMATED GFR > 60; GLUCOSE 87 mg/dL (70-104); GOT 31 U/L (10-34); GPT 18 U/L (10-44); POTASSIUM 3.3 mmol/L (3.5-5.1); SODIUM 132 mmol/L (136-145); TCO2 20 mmol/L (25-35); TOTAL BILIRUBIN 1.02 mg/dL (0.20-1.00)
[2019-05-19 20:33] LABS: URINE SOURCE CLEAN CATCH
[2019-05-19 20:37] LABS: BILIRUBIN URINE NEGATIVE (NEGATIVE); BLOOD URINE NEGATIVE (NEGATIVE); COLOR YELLOW; GLUCOSE URINE NEGATIVE (NEGATIVE); KETONE URINE 10 mg/dL (NEGATIVE); LEUKOCYTES URINE NEGATIVE (NEGATIVE); NITRITE URINE NEGATIVE (NEGATIVE); PH URINE 5.5; PROTEIN URINE TRACE mg/dL (NEGATIVE); TURBIDITY URINE CLEAR (CLEAR); UROBILINOGEN URINE NORMAL (NORMAL)
[2019-05-19 20:38] LABS: UR EPITHELIAL CELLS <10 /HPF (<10); URINE BACTERIA NEGATIVE /HPF; URINE RBC <10 /HPF (<10); URINE WBC <10 /HPF (<10)
[2019-05-19 20:57] LABS: UR AMPHETAMINES QUAL PRESUMPTIVE POSITIVE (NONE DETECT); UR BARBITUATES QUAL NONE DETECTED (NONE DETECT); UR BENZODIAZEPIN QUAL PRESUMPTIVE POSITIVE (NONE DETECT); UR CANNABINOIDS QUAL NONE DETECTED (NONE DETECT); UR COCAINE QUAL NONE DETECTED (NONE DETECT); UR METHADONE QUAL NONE DETECTED (NONE DETECT); UR OPIATES QUAL NONE DETECTED (NONE DETECT); UR OXYCODONE QUAL NONE DETECTED (NONE DETECT); UR PCP QUAL NONE DETECTED (NONE DETECT)
--- NOTE | 2019-05-19 21:01 | Diag Imaging Result Doc PS360 ---
EXAM: CHEST-PORTABLE INDICATION: DOD TECHNIQUE: One view COMPARISON: 01/25/2019 FINDINGS: The lungs are grossly clear. There is no discrete pleural fluid collection or pneumothorax. The cardiomediastinal silhouette and central vasculature are grossly unremarkable. IMPRESSION: No evidence of acute pathology by plain radiograph. Electronically signed by Hoang Dhillon 05/19/2019 8:59 PM
--- NOTE | 2019-05-19 21:03 | EKG Report ---
Test Performed on : 05/19/2019 6:40:24 PM Test Reason : DOD Blood Pressure : / mmHG Vent. Rate : 133 BPM Atrial Rate : 133 BPM P-R Int : 134 ms QRS Dur : 072 ms QT Int : 314 ms P-R-T Axes : 061 077 058 degrees QTc Int : 467 ms Sinus tachycardia. Otherwise normal ECG When compared with ECG of 11-FEB-2019 16:47, No significant change was found Unconfirmed Result
[2019-05-19] MEDS: ATIVAN IV PRN (23:26)
[2019-05-19] MEDS: NS 1,000 ML IV SCH (23:26)
--- NOTE | 2019-05-19 23:47 | HISTORY AND PHYSICAL ---
PRIMARY CARE PHYSICIAN: None. CHIEF COMPLAINT: Methamphetamine overdose. HISTORY OF PRESENTING ILLNESS: A 38-year-old male without any significant past medical history was brought by EMS due to patient being agitated and when patient arrived to the ED he was given anxiolytic agents. He states that he took about 5 g of methamphetamine. He still was agitated and was shaking. His UDS had confirmed he had amphetamine. Due to his presenting symptoms, he will require admission to ICU for further management. At the time of my examination, he denied any headache, fever, chills, chest pain, shortness of breath or weight changes, just stated he did not feel well. PAST MEDICAL HISTORY: None. PAST SURGICAL HISTORY: None. ALLERGIES: No known drug allergies. CURRENT MEDICATIONS: None. SOCIAL HISTORY: A 30 pack years history of smoking. Admits to drinking beer occasionally. Admits to methamphetamine use. FAMILY HISTORY: No history of coronary disease. REVIEW OF SYSTEMS: Fourteen point review of system as listed in HPI. Other systems negative. PHYSICAL EXAMINATION: GENERAL: Cooperative, friendly male. He is resting more comfortably now. He initially was agitated. He was given anxiolytic agents. VITAL SIGNS: Temperature 99.8 degrees, pulse of 40, respiration 22, blood pressure 157/111. HEENT: Atraumatic, normocephalic. Extraocular movements intact. PERRLA. NECK: No masses. CHEST: Clear to auscultation. CARDIOVASCULAR: Regular rate and rhythm. ABDOMEN: Soft. Positive bowel sounds. EXTREMITIES: No edema. NEUROLOGIC: He is awake, alert, oriented x3. Is somewhat shaking. : No bladder distention. SKIN: Warm. LABORATORIES AND STUDIES: UDS shows amphetamine is positive. WBCs 7.11, hemoglobin 15.1, hematocrit 42.9, platelets 156,000. Sodium 132, potassium 3.3, chloride 92, CO2 is 20, BUN is 11, creatinine 1.0, glucose is 87. Creatine kinase is 525. Troponin 0.010. Chest x-ray is negative. ASSESSMENT: A 38-year-old male was brought by emergency medical services due to patient being agitated. He was evaluated in the emergency department. It was discovered that as per history he took 5 g of methamphetamines. He was evaluated in the emergency department. He was given anxiolytic agents due to patient being agitated and he will require admission for further management. 1. Methamphetamine overdose. 2. Ongoing tobacco abuse. PLAN: 1. We will admit patient to ICU. 2. Continue with supportive care. 3. Continue IV fluids, antiemetics as needed. 4. We will give Ativan p.r.n. agitation. 5. Counseled patient on drug and smoking cessation. 6. We will put patient on DVT prophylaxis with SCDs. 7. We will continue to follow and reassess. Make further recommendation based on patient's clinical course. cc: Yoel Boyd MD MTDJono
[2019-05-20] MEDS: ATIVAN IV PRN ×2 (03:29→08:32)
[2019-05-20 07:10] LABS: BASO# 0.02 X1000 (0.0-0.2); BASO% 0.3 % (0.0-0.8); EOS# 0.54 X1000 (0.0-0.7); EOS% 9.4 % (0.0-10.0); HEMATOCRIT 43.5 % (42.0-52.0); HEMOGLOBIN 14.4 g/dL (14.0-18.0); LYMPH# 2.39 X1000 (1.2-3.4); LYMPH% 41.6 % (20.5-51.1); MCH 31.6 PG (27-31); MCHC 33.1 g/dL (33-37); MCV 95.4 FL (81-99); MONO# 0.81 X1000 (0.11-0.59); MONO% 14.1 % (1.7-9.3); MPV 11.4 FL (7.4-10.4); NEUT# 1.99 X1000 (1.4-6.5); NEUT% 34.6 % (42.2-75.2); PLT 96 X1000 (130-400); RBC 4.56 XMIL (4.7-6.1); RDW 12.7 % (11.5-14.5); WBC 5.75 X1000 (4.8-10.8)
[2019-05-20 07:28] LABS: AGAP 14; BUN 8 mg/dL (8-22); CALCIUM 8.2 mg/dL (8.8-10.2); CHLORIDE 100 mmol/L (98-107); COSMO 269; CREATININE 0.9 mg/dL (0.7-1.2); ESTIMATED GFR > 60; GLUCOSE 83 mg/dL (70-104); POTASSIUM 3.8 mmol/L (3.5-5.1); SODIUM 136 mmol/L (136-145); TCO2 22 mmol/L (25-35)
[2019-05-20] MEDS: NS 1,000 ML IV SCH ×2 (07:33→15:06)
[2019-05-20 17:21] VITALS: BP 137/82
--- NOTE | 2019-05-22 09:31 | DISCHARGE SUMMARY ---
ADMISSION DATE: 05/19/2019 DISCHARGE DATE: 05/20/2019 FINAL DISCHARGE DIAGNOSES: 1. Drug overdose. 2. Polysubstance abuse. 3. Mild rhabdomyolysis. HOSPITAL COURSE: Mr. Khan is a 38-year-old male with a history of polysubstance abuse who was brought to the ER via EMS after the patient was noted to be combative and agitated. The patient admits that he took some methamphetamine that was given to him by a friend and became agitated and started shaking. The patient was started on IV fluids in the hospital in the ER and transferred to the ICU. The patient was noted to have a mildly elevated CK. The following morning the patient was noted to be alert and oriented x4. He stated that he was going to stop using the illicit substances. The patient reports that he lives with his mother. The patient ultimately decided to leave the hospital against medical advice on 05/20/2019. The patient was advised to stay in the hospital to complete his treatment. The patient was told that if he has any further issues to return to the ER. cc: Jaja Peraza MD
== END 2019-05-20 17:50 | disposition left against medical advice (07) | DRG 918 ==
LOC: SUPCPDRO → ED 18:24 → SUATTDRO 22:49 → ICU 22:49
PROVIDERS: ATTEND Internal Medicine

== ENCOUNTER 2019-06-14 12:51 | Inpatient (IN) ==
[2019-06-14 13:33] LABS: BASO# 0.05 X1000 (0.0-0.2); BASO% 0.8 % (0.0-0.8); EOS# 0.22 X1000 (0.0-0.7); EOS% 3.3 % (0.0-10.0); HEMATOCRIT 44.1 % (42.0-52.0); HEMOGLOBIN 15.1 g/dL (14.0-18.0); LYMPH# 1.99 X1000 (1.2-3.4); LYMPH% 30.1 % (20.5-51.1); MCH 31.6 PG (27-31); MCHC 34.2 g/dL (33-37); MCV 92.3 FL (81-99); MONO# 0.66 X1000 (0.11-0.59); MPV 11.4 FL (7.4-10.4); NEUT% 55.8 % (42.2-75.2); PLT 230 X1000 (130-400); RBC 4.78 XMIL (4.7-6.1); RDW 12.3 % (11.5-14.5); WBC 6.62 X1000 (4.8-10.8)
[2019-06-14 14:39] LABS: AGAP 21; ALB/GLOB RATIO 1.4; ALBUMIN 3.9 g/dL (3.5-5.0); ALKALINE PHOSPHATASE 47 U/L (32-122); BUN 10 mg/dL (8-22); CALCIUM 8.9 mg/dL (8.8-10.2); CHLORIDE 94 mmol/L (98-107); COSMO 268; CREATININE 1.1 mg/dL (0.7-1.2); ESTIMATED GFR > 60; GLUCOSE 76 mg/dL (70-104); GOT 38 U/L (10-34); GPT 17 U/L (10-44); MAGNESIUM 1.9 mg/dL (1.5-2.7); POTASSIUM 3.7 mmol/L (3.5-5.1); SODIUM 135 mmol/L (136-145); TCO2 20 mmol/L (25-35); TOTAL BILIRUBIN 0.72 mg/dL (0.20-1.00); TOTAL PROTEIN 6.7 g/dL (6.3-8.3)
[2019-06-14 14:46] LABS: UR AMPHETAMINES QUAL PRESUMPTIVE POSITIVE (NONE DETECT); UR BARBITUATES QUAL NONE DETECTED (NONE DETECT); UR BENZODIAZEPIN QUAL PRESUMPTIVE POSITIVE (NONE DETECT); UR CANNABINOIDS QUAL NONE DETECTED (NONE DETECT); UR COCAINE QUAL NONE DETECTED (NONE DETECT); UR METHADONE QUAL NONE DETECTED (NONE DETECT); UR OPIATES QUAL NONE DETECTED (NONE DETECT); UR OXYCODONE QUAL NONE DETECTED (NONE DETECT); UR PCP QUAL NONE DETECTED (NONE DETECT)
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
[2019-06-14] MEDS ORDERED: TYLENOL PO PRN (18:09)
[2019-06-14] MEDS ORDERED: ZOFRAN IV PRN (18:09)
[2019-06-14] MEDS ORDERED: CATAPRES-TTS-2 TD ONE (18:09)
[2019-06-14] MEDS ORDERED: LOPRESSOR IV PRN (18:09)
--- NOTE | 2019-06-14 18:10 | HISTORY AND PHYSICAL ---
Mr. Esteban 38-year-old brought to the emergency room because of confusion and he admitted to methamphetamine overdose. Apparently also was using cocaine and alcohol. He has no primary care physician. PAST MEDICAL HISTORY: Really nothing, I saw where he was admitted back on 05/19/2019 with a methamphetamine overdose as well. At that time he took about 5 g of methamphetamine. Urine drug screen was confirmed positive as well. ALLERGIES: No known drug allergies. SOCIAL HISTORY: Thirty pack year history of smoking. Admits to drinking beer on occasion. Admits to methamphetamine use. FAMILY HISTORY: No history of coronary artery disease. REVIEW OF SYSTEMS: Unable to get really review of systems. He had no complaints of pain or fever or respiratory difficulty. He is not complaining of any chest pain but he was still having hallucinations and is still pretty lethargic. PHYSICAL EXAMINATION: Temperature 98.2 degrees, pulse 123, respirations 29, blood pressure 177/125. Pupils are equal and round. LUNGS: Clear in all lung yu. CARDIOVASCULAR: Regular rhythm and rate without murmur or S3. ABDOMEN: Soft. SKIN: Warm and dry. Weight 180 pounds. He was diaphoretic, CVP less than 6 cm. His carotid, radial and femoral pulses 2+ and symmetrical. LABORATORY: White count 6620, hematocrit 44, platelet count 230,000. Sodium 135, potassium 3.7, chloride 94, BUN 10, creatinine 1.1, blood sugar 76, calcium 8.9. Urine drug screen positive for amphetamines, benzodiazepines and had a little bit alcohol in his system as well. ASSESSMENT/PLAN: Metabolic encephalopathy from recreational drugs, amphetamine and benzodiazepines with visual and auditory hallucinations and confusion. We will put him in the unit. He appears to be hemodynamically stable. We will give him a clonidine patch 0.2 mg put it on help with his blood pressure. We will treat him with benzodiazepine. We will use Ativan 1 to 2 mg IV every hour p.r.n. We may use some phenobarbital. We will see how he does and put him into ICU. We will order him a regular diet. We will recheck a Chem 22 in the morning with a magnesium and we will check B12, folate, T4, TSH. Note we will put him on nicotine patch. He does smoke and of course counseled him on the importance of tobacco cessation and cessation of methamphetamine and cocaine. He has no primary care physician so not sure where the benzodiazepines came from. cc: Maxim Smith MD
[2019-06-14 18:51] LABS: FREE T4 1.43 ng/dL (0.93-1.70); TSH 1.17 uIUmL (0.27-4.20)
[2019-06-14] MEDS: ATIVAN IV PRN ×2 (19:20→20:35)
[2019-06-14] MEDS: NS 1,000 ML IV SCH (20:24)
[2019-06-14] MEDS: NICODERM PATCH TD SCH (20:25)
[2019-06-14] MEDS: PHENOBARBITAL IV SCH (21:11)
[2019-06-15] MEDS: NS 1,000 ML IV SCH ×2 (03:27→09:39)
[2019-06-15] MEDS: PHENOBARBITAL IV SCH (06:10)
[2019-06-15] MEDS: ATIVAN IV PRN ×2 (08:15→09:39)
[2019-06-15] MEDS: NICODERM PATCH TD SCH (08:15)
[2019-06-15 08:38] LABS: BASO# 0.04 X1000 (0.0-0.2); BASO% 0.7 % (0.0-0.8); EOS# 0.67 X1000 (0.0-0.7); EOS% 12.1 % (0.0-10.0); HEMATOCRIT 44.2 % (42.0-52.0); HEMOGLOBIN 14.9 g/dL (14.0-18.0); IMM GRAN# 0.02 X1000 (0.0-0.04); IMM GRAN% 0.4 % (0.0-0.5); LYMPH# 1.63 X1000 (1.2-3.4); LYMPH% 29.5 % (20.5-51.1); MCH 31.7 PG (27-31); MCHC 33.7 g/dL (33-37); MONO# 0.62 X1000 (0.11-0.59); MONO% 11.2 % (1.7-9.3); NEUT# 2.54 X1000 (1.4-6.5); NEUT% 46.1 % (42.2-75.2); PLT 157 X1000 (130-400); RDW 12.4 % (11.5-14.5); WBC 5.52 X1000 (4.8-10.8)
[2019-06-15 08:47] LABS: AGAP 9; BUN 9 mg/dL (8-22); CALCIUM 8.4 mg/dL (8.8-10.2); CHLORIDE 99 mmol/L (98-107); COSMO 268; CREATININE 0.9 mg/dL (0.7-1.2); ESTIMATED GFR > 60; GLUCOSE 87 mg/dL (70-104); POTASSIUM 3.8 mmol/L (3.5-5.1); SODIUM 135 mmol/L (136-145); TCO2 27 mmol/L (25-35)
[2019-06-15 11:30] VITALS: BP 122/86
[2019-06-15] MEDS ORDERED: ROBITUSSIN PO ONE (13:28)
--- NOTE | 2019-06-15 13:40 | DISCHARGE SUMMARY ---
ADMISSION DATE: 06/14/2019 DISCHARGE DATE: EXPECTED DISCHARGE: Today. HISTORY OF PRESENT ILLNESS: Brought to the emergency room with confusion. Admitted with admitted amphetamine, methamphetamine overdose, and apparently has a history of drinking some alcohol with that. He has a history of using cocaine as well. He has been admitted with this before. PAST MEDICAL HISTORY: Admitted back on 05/19/2019 with a methamphetamine overdose as well, took about 5 g of amphetamine at that time. Drug screen was positive for methamphetamines and for benzodiazepines. He has no history of coronary artery disease. HOSPITAL COURSE: He still had some visual and auditory hallucinations on admission. He had a pretty good night. Hemodynamically stable. Was eating well, swallowing. No nausea. PHYSICAL EXAMINATION: He remains afebrile, blood pressure 122/86, pulse 95, respirations 20. Lungs are clear in all lung yu. Cardiovascular Examination: Regular rhythm and rate without murmur or S3. Anticipate we will let him go home. REVIEW OF ALL HIS LABS: Labs were really unremarkable. CBC, his electrolytes, kidney function look good. Creatinine was 1.1. This morning, it is 0.9. Liver functions unremarkable. Drug screen positive for amphetamines, benzodiazepines, and he had a little bit of ethanol in his system. He has no home medications So plan to discharge him home. Counseled him. Encouraged him to quit using recreational drugs and counseled him on the importance of stopping smoking as well. I will give him a prescription for a nicotine patch for 2 weeks. cc: Maxim Smith MD
--- NOTE | 2019-06-16 09:21 | EKG Report ---
Test Performed on : 06/14/2019 1:04:39 PM Test Reason : TACHY Blood Pressure : / mmHG Vent. Rate : 122 BPM Atrial Rate : 122 BPM P-R Int : 142 ms QRS Dur : 078 ms QT Int : 344 ms P-R-T Axes : 067 072 051 degrees QTc Int : 490 ms Sinus tachycardia. Possible Left atrial enlargement Borderline ECG When compared with ECG of 14-JUN-2019 13:03, (Unconfirmed) No significant change was found Unconfirmed Result
== END 2019-06-15 15:10 | disposition home or self-care (01) | DRG 917 ==
LOC: SUPCPDRO → ED 12:51 → EDIPHOLD 18:20 → ICU 19:02
PROVIDERS: ATTEND Emergency Medicine